=== PATIENT | female | born 2005 | race African-American/Black ===

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

== ENCOUNTER 2023-04-05 10:16 | Emergency (ER) | payer BC ==
--- OUTSIDE RECORDS SUMMARY | 2023-04-05 10:19 | XMS REPORT | Continuity of Care Document ---
:2005 Author Organization [facility] t Address [address] [facility] [address] [place] [id number] Care Team Providers Name Role Phone [email or web address] Attending Clinician Unavailable [email or web address] Admitting Clinician Unavailable Payers Payer Name Policy Type Policy Number Effective Date Expiration Date S [place] [id number] 2018 00:00:00 [place] Problems This patient has no known problems. Allergies, Adverse Reactions, Alerts This patient has no known allergies or adverse reactions. Medications This patient has no known medications. Procedures This patient has no known procedures. Encounters Start End Encounter Admission Attending Care Care Encounter Source Date/Time Date/Time Type Type Clinicians Facility Department ID 2023-03-07 2023-03-07 Outpatient GC_[email or web address] PRIV PRIV [id number] [facility] 00:00:00 00:00:00 Intire_E [id number] Medic al 2023-03-07 2023-03-07 Outpatient GC_[email or web address] PRIV PRIV [id number] [facility] 00:00:00 00:00:00 Int[facility]_E [id number] Medic al 2023-03-04 2023-03-04 Outpatient GC_[email or web address] PRIV PRIV [id number] [facility] 00:00:00 00:00:00 Intire_E [id number] Medic al 2023-01-07 2023-01-07 Outpatient GC_[email or web address]_Mc PRIV PRIV [id number] [facility] 00:00:00 00:00:00 Intire_E [id number] Medic al 2023-01-07 2023-01-07 Outpatient GC_[email or web address]_Mc PRIV PRIV [id number] [facility] 00:00:00 00:00:00 Intire_E [id number] Medic al 2023-01-07 2023-01-07 Outpatient GC_GCBZW_Mc PRIV PRIV [id number] [facility] 00:00:00 00:00:00 Intire_E [id number] Medic al 2023-01-01 2023-01-01 Outpatient GC_GCBZW_Mc PRIV PRIV [id number] [facility] 00:00:00 00:00:00 Intire_E [id number] Medic al 2022-12-29 2022-12-29 Outpatient GC_GCBZW_Mc PRIV PRIV [id number] [facility] 00:00:00 00:00:00 Intire_E [id number] Medic al 2022-12-15 2022-12-15 Outpatient GC_GCBZW_Mc PRIV PRIV [id number] [facility] 00:00:00 00:00:00 Intire_E [id number] Medic al 2022-12-15 2022-12-15 Outpatient GC_GCBZW_ PRIV PRIV [id number] [facility] 00:00:00 00:00:00 Intire_E [id number] Medic al Results This patient has no known results.
--- NOTE | 2023-04-05 11:22 | EDPHYS ---
Physician Documentation [facility] Name: Nalini Freeman Age: 17 yrs Sex: Female : 2005 Arrival Date: 04/05/2023 Time: 10:16 Bed DIS3 Private MD: ED Physician Marty Hobbs HPI: 04/05 11:20 This 17 yrs old Black Female presents to ER via Ambulatory with complaints of Allergic kb Reaction, control. 11:20 The patient presents with rash, sores in mouth. Onset: The symptoms/episode kb began/occurred 5 day(s) ago. Associated signs and symptoms: Pertinent positives: hives. Possible causes: BCP. At home the patient or guardian has treated the symptoms with Benadryl. Severity of symptoms: At their worst the symptoms were mild in the emergency department the symptoms have improved. The patient has not experienced similar symptoms in the past. The patient has not recently seen a physician. Patient is a 17-year-old female with a history of ADD who presents for allergic reaction to control pills. States she developed hives on took some Benadryl and they resolved. Wednesday she woke up with sores in her mouth and a sore throat. States she has been scraping off the sores but they returned. Went to her laundry folder today and was told to come to the ER for evaluation. Historical: - Allergies: 10:55 Amoxicillin; ap3 - Home Meds: 10:55 control [Active]; ap3 - PMHx: 10:55 ADD/ADHD; ap3 - PSHx: 10:55 knee (ADD/ADHD); ap3 - Immunization history:: Adult Immunizations unknown. - Social history:: Smoking status: unknown. ROS: 11:19 Constitutional: Negative for fever, chills, and weight loss, kb 11:19 ENT: Positive for sore throat, sores in mouth, 11:19 All other systems are negative, Exam: 11:19 Constitutional: This is a well developed, well nourished patient who is awake, alert, kb and in no acute distress. Head/Face: Normocephalic, atraumatic. Cardiovascular: Regular rate Respiratory: Respirations even and unlabored. No increased work of breathing. Talking in full sentences Skin: Warm, dry with normal turgor. Normal color. MS/ Extremity: Pulses equal, no cyanosis. Neurovascular intact. Full, normal range of motion. Neuro: Awake and alert, GCS 15, oriented to person, place, time, and situation. Moves all extremities. Normal gait. 11:19 ENT: Posterior pharynx: Airway: normal, no evidence of obstruction, erythema, that is moderate, Vital Signs: 10:49 BP 132 / 81; Pulse 63; Resp 18; Pulse Ox 100% on R/A; bc6 MDM: 10:27 Patient medically screened. kb 11:20 Differential diagnosis: anaphylaxis, urticaria, strep, herpangina. Data reviewed: vital kb signs, nurses notes. Counseling: I had a detailed discussion with the patient and/or guardian regarding the historical points, exam findings, and any diagnostic results supporting the discharge/admit diagnosis, lab results, the need for outpatient follow up, a family practitioner, to return to the emergency department if symptoms worsen or persist or if there are any questions or concerns that arise at home. 04/05 10:34 Order name: Strep 04/05 11:19 Order name: Throat Culture EDMS Administered Medications: No medications were administered Disposition: 14:11 Co-signature as Attending Physician, Marty Hobbs MD I reviewed the patient's care rn provided by the Advanced Practice Provider and agree with the diagnosis and treatment plan. Disposition Summary: 04/05/23 11:22 Discharge Ordered Notes: Location: Home kb Condition: Stable kb Diagnosis - Allergy to control pills kb Followup: kb - With: Emergency Department - When: As needed - Reason: Worsening of condition Followup: kb - With: Private Physician - When: 2 - 3 days - Reason: Recheck today's complaints, Continuance of care, Re-evaluation by your physician Discharge Instructions: - Discharge Summary Sheet kb - Drug Allergy, [id number] kb Forms: - Medication Reconciliation Form kb - Thank You Letter kb - Antibiotic Education kb - Prescription Opioid Use kb - Patient Portal Instructions kb - Leadership Thank You Letter kb Prescriptions: - chlorhexidine gluconate 0.12 % subgingival-local Mouthwash - swish 10 milliliter MUCOUS MEMBRANE route 2 times per day; 100 milliliter; kb Refills: 0, Product Selection Permitted - Pepcid 20 mg Oral Tablet - take 1 tablet ORAL route every 12 hours for 5 days; 10 tablet; Refills: 0, kb Product Selection Permitted Signatures: Dispatcher [employer] Marialuisa Mata, GRAB HOOKER-C GRAB HOOKER-Ckb Marty Hobbs MD MD rn Shantelle Silva RN RN ap3 Keesha Phillips RN RN cm10
--- NOTE | 2023-04-05 11:22 | ER ---
Nurse's Notes [facility] Name: Nalini Freeman Age: 17 yrs Sex: Female : 2005 Arrival Date: 04/05/2023 Time: 10:16 Bed DIS3 Private MD: Diagnosis: Allergy to control pills Presentation: 04/05 10:54 Chief complaint: Patient states: she started having hives , Benadryl took the ap3 hives away. Wednesday she started having mouth sores. Coronavirus screen: At this time, the client does not indicate any symptoms associated with coronavirus-19. Ebola Screen: No symptoms or risks identified at this time. Onset: The symptoms/episode began/occurred gradually. Anaphylaxis evaluation, no signs or symptoms of anaphylaxis were noted. Initial Sepsis Screen: Does the patient meet any 2 criteria?. Initial Sepsis Screen: Does the patient have a suspected source of infection? No. Patient's initial sepsis screen is negative. Risk Assessment: Do you want to hurt yourself or someone else? Patient reports no desire to harm self or others. Onset of symptoms was April 01, 2023. 10:54 Method Of Arrival: Ambulatory ap3 10:54 Acuity: ALVERTO 4 ap3 Triage Assessment: 10:56 General: Appears in no apparent distress. Behavior is calm, cooperative, appropriate ap3 for age. Pain: Denies pain. Neuro: Level of Consciousness is awake, alert, obeys commands, Oriented to person, place, time, situation. Cardiovascular: Patient's skin is warm and dry. Respiratory: Airway is patent Respiratory effort is even, unlabored. Historical: - Allergies: 10:55 Amoxicillin; ap3 - Home Meds: 10:55 control [Active]; ap3 - PMHx: 10:55 ADD/ADHD; ap3 - PSHx: 10:55 knee (ADD/ADHD); ap3 - Immunization history:: Adult Immunizations unknown. - Social history:: Smoking status: unknown. Screenin:32 [facility] ED Fall Risk Assessment (Adult) History of falling in the last 3 months, cm10 including since admission No falls in past 3 months (0 pts) Confusion or Disorientation No (0 pts) Intoxicated or Sedated No (0 pts) Impaired Gait No (0 pts) Mobility Assist Device Used No (0 pt) Altered Elimination No (0 pt) Score/Fall Risk Level 0 - 2 = Low Risk Oriented to surroundings, Maintained a safe environment, Hourly rounding (assess needs \T\ fall precautionary measures) done. Abuse screen: Denies threats or abuse. Denies injuries from another. Nutritional screening: No deficits noted. Tuberculosis screening: No symptoms or risk factors identified. Assessment: 10:56 Respiratory: Airway is patent Respiratory effort is even, unlabored. ap3 11:33 Respiratory: Breath sounds are clear bilaterally. cm10 Vital Signs: 10:49 BP 132 / 81; Pulse 63; Resp 18; Pulse Ox 100% on R/A; bc6 ED Course: 10:19 Patient arrived in ED. mr 10:27 Marialuisa Martinez FNP-C [facility]. kb 10:27 Marty Hobbs MD is Attending Physician. kb 10:50 Strep Sent. bc6 10:55 Triage completed. ap3 11:32 Arm band placed on Patient placed in waiting room. cm10 11:32 Patient has correct armband on for positive identification. Provided Education on: ER cm10 process and procedures. . 11:33 No provider procedures requiring assistance completed. Patient did not have IV access cm10 during this emergency room visit. Administered Medications: No medications were administered Medication: 11:32 VIS not applicable for this client. cm10 Outcome: 11:22 Discharge ordered by MD. kb 11:33 Discharged to home ambulatory, cm10 11:33 Condition: good 11:33 Discharge instructions given to patient, Instructed on discharge instructions, follow up and referral plans. medication usage, Demonstrated understanding of instructions, follow-up care, medications, Prescriptions given X 2, 11:33 Patient left the ED. cm10 Signatures: Marialuisa Martinez FNP-C FNP-Nargis MckenzieKellen, Reg Reg Shantelle Silva, RN RN ap3 Molly Cook bc6 Keesha Phillips RN RN cm10
[2023-04-05 11:42] VITALS: BP 132/81; O2SAT 100
== END 2023-04-05 11:33 | disposition home or self-care (01) ==
LOC: ER 10:16
DX: R21 Rash and other nonspecific skin eruption (principal); K13.79 Other lesions of oral mucosa; Z88.8 Allergy status to other drugs, medicaments and biological substances
CPT/HCPCS: 87070; 87081; 99283